=== PATIENT | female | born 1990 | race Caucasian/White ===

== ENCOUNTER 2017-05-08 17:59 | Emergency (ER) | payer SELFPAY ==
[~2017-05-08] VITALS: Ht 160 cm; Wt 57.7 kg
[~2017-05-08 17:59] MED LIST: DIAZ5 PO; DICY1TAB26 PO; MACR100C PO; PROC1TAB8 PO
[2017-05-08 18:11] VITALS: BP 109/84; PULSE 99; RESP 20; TEMP 98.6; O2SAT 99
[2017-05-08] MEDS ORDERED: SODIUM CHLOR 0.9% 1000 ML INJ 1,000 ML IV ONE (19:19)
--- NOTE | 2017-05-08 19:25 | PD ---
HPI Chief Complaint: Headache Time Seen by Provider: 19:10 Travel History International Travel<30 days: No Contact w/Intl Traveler<30days: No Traveled to known affect area: No History of Present Illness HPI The patient is a 26-year-old female that complains of a headache behind her left eye going on over a year. It is been getting worse in the last few months and in particular the last few days she has had some nausea and vomiting. She denies any focal neurologic change. She denies any fever. She does have a history of migraine headaches in her family. He states there is no possibility of . She denies any nasal discharge. She does have photophobia but no phonophobia. She states her headache pain as an 8/10 and an achy pain. She has a past history of IV drug abuse and does have hepatitis C but no longer engages in IV drug abuse. PFSH Past Medical History Arthritis: No Asthma: No Autoimmune Disease: No Anxiety: Yes Heart Rhythm Problems: No Cancer: No Cardiovascular Problems: No High Cholesterol: No Chest Pain: No Congestive Heart Failure: No Cerebrovascular Accident: No Diabetes: No Diminished Hearing: Yes (OUTER EAR RECONSTRUCTION) Endocrine: No Gastrointestinal Disorders: No GERD: No Genitourinary: No Hepatitis: Yes (HEP C+) Hiatal Hernia: Yes Hypertension: No Immune Disorder: No Inguinal Hernia: Yes Kidney Stones: No Musculoskeletal: Yes Neurologic: No Psychiatric: Yes Reproductive: No Respiratory: No Immunizations Current: Yes Migraines: Yes Myocardial Infarction: No Renal Failure: No Seizures: No Sleep Apnea: No Thyroid Disease: No Ulcer: No Influenza Vaccination: No ?: Unknown LMP: 3 WEEKS AGO : 3 Para: 1 Miscarriage: 0 : 2 Past Surgical History Abdominal Surgery: Yes (UMBILICAL HERNIA REPAIR) Appendectomy: No Cardiac Surgery: No Cholecystectomy: No Ear Surgery: Yes (RECONSTRUCTIVE SURGERY RIGHT OUTER EAR. ) Endocrine Surgery: No Eye Surgery: No Genitourinary Surgery: No Gynecologic Surgery: Yes Oral Surgery: No Thoracic Surgery: No Social History Alcohol Use: No Tobacco Use: Yes (1/2 PPD) Substance Use: No Allergies-Medications (Allergen,Severity, Reaction): Coded Allergies: Tramadol (Verified Allergy, Severe, HIVES, TONGUE AND TRHOAT SWELL, ) *MDRO Multi-Drug Resistant Organism (Verified Allergy, Unknown, 05/08/17) Mrsa urine Reported Meds & Prescriptions Reported Meds & Active Scripts Active No Active Prescriptions or Reported Medications Review of Systems Except as stated in HPI: all other systems reviewed are Neg Physical Exam Narrative GENERAL: The patient is alert, oriented 3 and moderate apparent distress with her headache. Her vital sides are normal except for heart rate of 99. SKIN: Focused skin assessment warm/dry. No skin rash is seen. HEAD: Atraumatic. Normocephalic. EYES: Pupils equal and round. No scleral icterus. No injection or drainage. ENT: No nasal bleeding or discharge. Mucous membranes pink and moist. NECK: Trachea midline. No JVD. There is no meningismus and the patient flexes neck fully so that the chin touches the chest. CARDIOVASCULAR: Regular rate and rhythm. No murmur appreciated. RESPIRATORY: No accessory muscle use. Clear to auscultation. Breath sounds equal bilaterally. GASTROINTESTINAL: Abdomen soft, non-tender, nondistended. Hepatic and splenic margins not palpable. MUSCULOSKELETAL: No obvious deformities. No clubbing. No cyanosis. No edema. NEUROLOGICAL: Awake and alert. No obvious cranial nerve deficits. Motor grossly within normal limits. Normal speech. PSYCHIATRIC: Appropriate mood and affect; insight and judgment normal. Data Data Last Documented VS Vital Signs Date Time Temp Pulse Resp B/P Pulse Ox O2 Delivery O2 Flow Rate FiO2 05/08/17 18:11 98.6 99 20 109/84 99 Orders Sumatriptan Inj (Imitrex Inj) (05/08/17 19:30) Complete Blood Count With Diff (05/08/17 19:19) Comprehensive Metabolic Panel (05/08/17 19:19) Ct Brain W/O Iv Contrast(Rout) (05/08/17 19:19) Ecg Monitoring (05/08/17 19:19) Iv Access Insert/Monitor (05/08/17 19:19) Oximetry (05/08/17 19:19) Sodium Chloride 0.9% Flush (Ns Flush) (05/08/17 19:30) Ketorolac Inj (Toradol Inj) (05/08/17 19:30) Prochlorperazine Inj (Compazine Inj) (05/08/17 19:30) Diphenhydramine Inj (Benadryl Inj) (05/08/17 19:30) Sodium Chlor 0.9% 1000 Ml Inj (Ns 1000 M (05/08/17 19:19) Urinalysis - C+S If Indicated (05/08/17 19:19) Ed Urine Pregnancytest Poc (05/08/17 19:19) Labs Laboratory Tests Test 05/08/17 19:35 Urine Color YELLOW Urine Turbidity CLEAR Urine pH 6.0 Urine Specific [place] 1.014 Urine Protein NEG mg/dL Urine Glucose (UA) NEG mg/dL Urine Ketones TRACE mg/dL Urine Occult Blood NEG Urine Nitrite POS Urine Bilirubin NEG Urine Leukocyte Esterase NEG Urine RBC INNUM /hpf Urine WBC 3-5 /hpf Urine Squamous Epithelial 0-5 /hpf Cells Urine Bacteria FEW /hpf Microscopic Urinalysis Comment CULT NOT INDICATED MDM Medical Decision Making Medical Screen Exam Complete: Yes Emergency Medical Condition: Yes Medical Record Reviewed: Yes Interpretation(s) The urine shows clear with trace ketones, positive nitrite, innumerable red cells with negative occult urine blood and 3-5 white cells and culture is not indicated. The CT brain is unremarkable. The [id number] test is negative. Differential Diagnosis Migraine headache, tension headache, tension/migraine combination headache, cluster headache, subarachnoid hemorrhagehighly unlikely, normal pressure hydrocephalus Narrative Course The patient refused blood work and did not want any pain medication or any other medication. The patient has had this headache over a year and needs to follow-up with a primary care physician and, hopefully, a neurologist. Plan: She'll be given Compazine for nausea. Diagnosis Primary Impression: Migraine headache without aura Additional Instructions: As we discussed, follow-up with a primary care physician. The nausea medicine, Compazine, can make you little sleepy but may also help your headache as well. Scripts Prochlorperazine Maleate 10 Mg Tab10 Mg PO Q6H PRN (NAUSEA OR VOMITING) #30 TAB Ref 0 Prov:James Gold MD 05/08/17 Disposition: 01 DISCHARGE HOME Condition: Stable James Gold MD May 08, 2017 19:25
[2017-05-08] MEDS ORDERED: KETOROLAC TROMETHAMINE 30 MG/ML (IVP) VIAL IVP ONE (19:30)
[2017-05-08] MEDS ORDERED: PROCHLORPERAZINE INJ 10 MG/2 ML VIAL IVP ONE (19:30)
[2017-05-08] MEDS ORDERED: SODIUM CHLORIDE 0.9% FLUSH 10 ML FLUSH IVF PRN (19:30)
[2017-05-08] MEDS ORDERED: SUMAtriptan INJ 6 MG/0.5 ML VIAL SQ ONE (19:30)
[2017-05-08] MEDS ORDERED: diphenhydrAMINE HCL 50 MG/ML VIAL IVP ONE (19:30)
[2017-05-08 19:50] LABS: BLOOD, URINE NEG (NEG); GLUCOSE,URINE NEG (NEG); KETONE, URINE TRACE mg/dL (NEG)
[2017-05-08 19:55] LABS: NITRITE,URINE POS (NEG)
[2017-05-08 19:56] LABS: URINE COLOR YELLOW (YELLW/STRAW)
[2017-05-08 19:59] LABS: BACTERIA, URINE FEW /hpf; COMMENT (UR) CULT NOT INDICATED; CULTURE IF INDICATED CULT NOT INDICATED; RBC, URINE INNUM /hpf (0-3); SQUAMOUS EPITHELIAL CELL URINE 0-5 /hpf (0-5)
--- NOTE | 2017-05-08 20:00 | RADRPT ---
EXAM DATE/TIME: 05/08/2017 19:39 [facility] COMPARISON: CT BRAIN W/O CONTRAST, October 13, 2015, 2:09. INDICATIONS : Headache behind left eye along with nausea and vomiting. RADIATION DOSE: 64.02 CTDIvol (mGy) MEDICAL HISTORY : Hepatitis C. SURGICAL HISTORY : Umbilical hernia repair. Right ear reconstruction ENCOUNTER: Initial ACUITY: 1 yr PAIN SCALE: 8/10 LOCATION: Left cranial TECHNIQUE: Multiple contiguous axial images were obtained of the head. Using automated exposure control and adj ustment of the mA and/or kV according to patient size, radiation dose was kept as low as reasonably a chievable to obtain optimal diagnostic quality images. DICOM format image data is available electro nically for review and comparison. FINDINGS: CEREBRUM: The ventricles are normal for age. No evidence of midline shift, mass lesion, hemorrhage or acute in farction. No extra-axial fluid collections are seen. POSTERIOR FOSSA: The cerebellum and brainstem are intact. The 4th ventricle is midline. The cerebellopontine angle i s unremarkable. EXTRACRANIAL: The visualized portion of the orbits is intact. SKULL: The calvaria is intact. No evidence of skull fracture. CONCLUSION: Unremarkable noncontrast CT. George Tyson MD on May 08, 2017 at 19:56 Board Certified Radiologist. This report was verified electronically.
[2017-05-08] MEDS ORDERED: PROC10TA PO (20:33)
[2017-05-08 20:38] VITALS: BP 111/72
== END 2017-05-08 20:41 | disposition home or self-care (01) ==
LOC: PHED 17:59
DX: G43.009 Migraine without aura, not intractable, without status migrainosus (principal); R11.0 Nausea; H53.149 Visual discomfort, unspecified; B19.20 Unspecified viral hepatitis C without hepatic coma; F17.210 Nicotine dependence, cigarettes, uncomplicated
CPT/HCPCS: 70450; 81001; 84703; 99284

== ENCOUNTER 2017-05-16 18:59 | Emergency (ER) | payer SELFPAY ==
[~2017-05-16] VITALS: Ht 157.5 cm; Wt 57.2 kg
[~2017-05-16 18:59] MED LIST changes: -DIAZ5 PO; -DICY1TAB26 PO; -MACR100C PO; +PROC10TA PO; -PROC1TAB8 PO
[2017-05-16 19:05] VITALS: BP 121/61; PULSE 61; RESP 18; TEMP 98.2; O2SAT 100
[2017-05-16] MEDS ORDERED: SODIUM CHLOR 0.9% 1000 ML INJ 1,000 ML IV ONE (19:44)
[2017-05-16] MEDS ORDERED: ONDANSETRON HCL 4 MG/2 ML VIAL IV ONE (19:45)
--- NOTE | 2017-05-16 19:58 | PD ---
HPI Chief Complaint: Abdominal Pain Time Seen by Provider: 19:44 Travel History International Travel<30 days: No Contact w/Intl Traveler<30days: No Traveled to known affect area: No History of Present Illness HPI The patient is a 26-year-old female that complains of primarily left pelvic pain along with nausea and vomiting for 2 days. She does have dysuria, frequency and urgency. She denies any vaginal bleeding. She states she has has chills but does not have a thermometer and never recorded a fever at home. She does have a vaginal discharge. She is G1, P1, A3all elective abortions. She was seen last week for headache and nausea, she states she always has a headache on and off. Her last menstrual period was normal 2 weeks ago. She does not have a primary care physician or insurance. PFSH Past Medical History Arthritis: No Asthma: No Autoimmune Disease: No Anxiety: Yes Heart Rhythm Problems: No Cancer: No Cardiovascular Problems: No High Cholesterol: No Chest Pain: No Congestive Heart Failure: No Cerebrovascular Accident: No Diabetes: No Diminished Hearing: Yes (OUTER EAR RECONSTRUCTION) Endocrine: No Gastrointestinal Disorders: No GERD: No Genitourinary: No Hepatitis: Yes (HEP C+) Hiatal Hernia: Yes Hypertension: No Immune Disorder: No Inguinal Hernia: Yes Kidney Stones: No Musculoskeletal: Yes Neurologic: No Psychiatric: Yes Reproductive: No Respiratory: No Immunizations Current: Yes Migraines: Yes Myocardial Infarction: No Renal Failure: No Seizures: No Sleep Apnea: No Thyroid Disease: No Ulcer: No Influenza Vaccination: No ?: Not LMP: 2 WEEKS : 3 Para: 1 Miscarriage: 0 : 2 Past Surgical History Abdominal Surgery: Yes (UMBILICAL HERNIA REPAIR) Appendectomy: No Cardiac Surgery: No Cholecystectomy: No Ear Surgery: Yes (RECONSTRUCTIVE SURGERY RIGHT OUTER EAR. ) Endocrine Surgery: No Eye Surgery: No Genitourinary Surgery: No Gynecologic Surgery: Yes Oral Surgery: No Thoracic Surgery: No Social History Alcohol Use: No Tobacco Use: Yes (1/2 PPD) Substance Use: No Allergies-Medications (Allergen,Severity, Reaction): Coded Allergies: Tramadol (Verified Allergy, Severe, HIVES, TONGUE AND TRHOAT SWELL, ) *MDRO Multi-Drug Resistant Organism (Verified Allergy, Unknown, 05/16/17) Mrsa urine Reported Meds & Prescriptions Reported Meds & Active Scripts Active Keflex (Cephalexin) 500 Mg Capsule 500 Mg PO TID 10 Days Phenergan (Promethazine HCl) 25 Mg Tablet 25 Mg PO Q6H PRN Review of Systems Except as stated in HPI: all other systems reviewed are Neg Physical Exam Narrative GENERAL: The patient is alert, oriented 3 in moderate apparent distress with her left pelvic pain. Her vital signs are normal. SKIN: Focused skin assessment warm/dry. HEAD: Atraumatic. Normocephalic. EYES: Pupils equal and round. No scleral icterus. No injection or drainage. ENT: No nasal bleeding or discharge. Mucous membranes pink and moist. NECK: Trachea midline. No JVD. CARDIOVASCULAR: Regular rate and rhythm. No murmur appreciated. RESPIRATORY: No accessory muscle use. Clear to auscultation. Breath sounds equal bilaterally. GASTROINTESTINAL: Abdomen soft, with tenderness to direct palpation in the left pelvis, nondistended. Hepatic and splenic margins not palpable. No guarding or rebound is present. MUSCULOSKELETAL: No obvious deformities. No clubbing. No cyanosis. No edema. NEUROLOGICAL: Awake and alert. No obvious cranial nerve deficits. Motor grossly within normal limits. Normal speech. PSYCHIATRIC: The patient is anxious; insight and judgment normal. GENITOURINARY: Normal external genitalia without lesions or erythema. Vaginal vault without blood but there is a watery, white drainage. Cervical os was closed without drainage. There is exquisite cervical motion tenderness. Uterus tender and nonenlarged. The left adnexa is exquisitely tender but no masses are felt. Data Data Last Documented VS Vital Signs Date Time Temp Pulse Resp B/P Pulse Ox O2 Delivery O2 Flow Rate FiO2 05/16/17 19:05 98.2 61 18 121/61 100 Orders Beta Hcg (Quant/Titer) (05/16/17 19:44) Complete Blood Count With Diff (05/16/17 19:44) Comprehensive Metabolic Panel (05/16/17 19:44) Urinalysis - C+S If Indicated (05/16/17 19:44) Sodium Chlor 0.9% 1000 Ml Inj (Ns 1000 M (05/16/17 19:44) Ondansetron Inj (Zofran Inj) (05/16/17 19:45) Gc And Chlamydia Pcr (05/16/17 20:00) Wet Prep Profile (05/16/17 20:00) Ketorolac Inj (Toradol Inj) (05/16/17 20:00) Urine Culture (05/16/17 19:45) Ceftriaxone Inj (Rocephin Inj) (05/16/17 21:00) Azithromycin Powd Pack (Zithromax Powd P (05/16/17 21:00) Labs Laboratory Tests Test 05/16/17 05/16/17 19:45 19:50 Urine Collection Type VOIDED Urine Color YELLOW Urine Turbidity CLOUDY Urine pH 7.5 Urine Specific [place] 1.020 Urine Protein 100 mg/dL Urine Glucose (UA) NEG mg/dL Urine Ketones NEG mg/dL Urine Occult Blood TRACE Urine Nitrite POS Urine Bilirubin NEG Urine Leukocyte Esterase TRACE Urine WBC 25-49 /hpf Urine WBC Clumps FEW Urine Squamous Epithelial 0-2 /hpf Cells Urine Bacteria MANY /hpf Microscopic Urinalysis Comment CULTURE INDICATED White Blood Count 7.0 TH/MM3 Red Blood Count 4.48 MIL/MM3 Hemoglobin 13.1 GM/DL Hematocrit 39.0 % Mean Corpuscular Volume 87.1 FL Mean Corpuscular Hemoglobin 29.1 PG Mean Corpuscular Hemoglobin 33.4 % Concent Red Cell Distribution Width 12.4 % Platelet Count 216 TH/MM3 Mean Platelet Volume 9.4 FL Neutrophils (%) (Auto) 63.5 % Lymphocytes (%) (Auto) 24.4 % Monocytes (%) (Auto) 10.8 % Eosinophils (%) (Auto) 0.6 % Basophils (%) (Auto) 0.7 % Neutrophils # (Auto) 4.5 TH/MM3 Lymphocytes # (Auto) 1.7 TH/MM3 Monocytes # (Auto) 0.8 TH/MM3 Eosinophils # (Auto) 0.0 TH/MM3 Basophils # (Auto) 0.0 TH/MM3 CBC Comment DIFF FINAL Differential Comment Clue Cells (Wet Prep) NONE SEEN Vaginal Trichomonas (Wet Prep) NONE SEEN Vaginal Yeast (Wet Prep) NONE SEEN Sodium Level 139 MEQ/L Potassium Level 3.6 MEQ/L Chloride Level 105 MEQ/L Carbon Dioxide Level 23.6 MEQ/L Anion Gap 10 MEQ/L Blood Urea Nitrogen 16 MG/DL Creatinine 0.79 MG/DL Estimat Glomerular Filtration 87 ML/MIN Rate Random Glucose 88 MG/DL Calcium Level 8.9 MG/DL Total Bilirubin 0.8 MG/DL Aspartate Amino Transf 17 U/L (AST/SGOT) Alanine Aminotransferase 25 U/L (ALT/SGPT) Alkaline Phosphatase 36 U/L Total Protein 7.9 GM/DL Albumin 4.2 GM/DL Human Chorionic Gonadotropin, LESS THAN 1 Quant MIU/ML MDM Medical Decision Making Medical Screen Exam Complete: Yes Emergency Medical Condition: Yes Medical Record Reviewed: Yes Interpretation(s) The CBC is normal. The complete metabolic profile shows a GFR of 87 but is otherwise normal. The beta-hCG is less than 1. The wet prep is negative for Trichomonas, clue cells or yeast. The urine shows cloudy turbidity, trace occult blood, 25-49 white cells with a few white cell clumping's and many bacteria and culture is indicated. Differential Diagnosis PID, pyelonephritis, cystitis, electrolyte disorder, appendicitisunlikely, ruptured ovarian cyst Narrative Course The patient has PID and pyelonephritis. She has a positive urine, flank tenderness and exquisite cervical tenderness. Plan: The patient is given Rocephin and oral Zithromax, Zofran and Keflex. She will need to follow-up with a primary care physician next week. She needs to increase liquid intake. Diagnosis Primary Impression: Pyelonephritis Additional Impression: PID (acute pelvic inflammatory disease) Additional Instructions: The Zofran is one tablet every 6 hours as needed for nausea. The Keflex is one tablet 3 times a day for 10 days. Follow-up next week with a primary care physician. Drink increased liquids to establish a good urine flow through your kidneys. Med/Other Pt SpecificInfo: Prescription(s) given Scripts Cephalexin (Keflex)500 Mg [id number] Mg PO TID 10 Days Ref 0 Prov:James Gold MD 05/16/17 Promethazine (Phenergan)25 Mg [id number] Mg PO Q6H PRN (NAUSEA OR VOMITING) #30 TAB Ref 0 Prov:James Gold MD 05/16/17 Disposition: 01 DISCHARGE HOME Condition: Stable James Gold MD May 16, 2017 19:58
[2017-05-16] MEDS ORDERED: KETOROLAC TROMETHAMINE 60 MG/2 ML (IM) VIAL IVP ONE (20:00)
[2017-05-16 20:01] LABS: BLOOD, URINE TRACE (NEG); GLUCOSE,URINE NEG (NEG); KETONE, URINE NEG (NEG); PH, URINE 7.5 (5.0-8.5)
[2017-05-16 20:02] LABS: NITRITE,URINE POS (NEG)
[2017-05-16 20:11] LABS: METHOD OF COLLECTION VOIDED; URINE COLOR YELLOW (YELLW/STRAW)
[2017-05-16 20:11] LABS: AUTOMATED NEUTROPHIL # 4.5 TH/MM3 (1.8-7.7); BASOPHIL % 0.7 % (0.0-2.0); EOSINOPHIL % 0.6 % (0.0-4.0); HEMO FLAGS DIFF FINAL; LYMPH % 24.4 % (9.0-44.0); LYMPHOCYTE # 1.7 TH/MM3 (1.0-4.8); MEAN CELL VOLUME 87.1 FL (80.0-100.0); MEAN CORPUSCULAR HEMOGLOBIN 29.1 PG (27.0-34.0); MEAN CORPUSCULAR HGB CONC 33.4 % (32.0-36.0); MONO % 10.8 % (0.0-8.0); NEUT % 63.5 % (16.0-70.0); PLATELET COUNT 216 TH/MM3 (150-450); RED BLOOD COUNT 4.48 MIL/MM3 (4.00-5.30); RED CELL DISTRIBUTION WIDTH 12.4 % (11.6-17.2)
[2017-05-16 20:13] LABS: BACTERIA, URINE MANY /hpf; COMMENT (UR) CULTURE INDICATED; CULTURE IF INDICATED CULTURE INDICATED; SQUAMOUS EPITHELIAL CELL URINE 0-2 /hpf (0-5)
[2017-05-16 20:20] LABS: CHLORIDE 105 MEQ/L (98-107); POTASSIUM 3.6 MEQ/L (3.5-5.1); SODIUM (NA) 139 MEQ/L (136-145)
[2017-05-16 20:24] LABS: ANION GAP 10 MEQ/L (5-15); BICARBONATE 23.6 MEQ/L (21.0-32.0); BLOOD UREA NITROGEN 16 MG/DL (7-18)
[2017-05-16 20:27] LABS: ALT (GPT) 25 U/L (10-53); AST (GOT) 17 U/L (15-37); GLOMERULAR FILTRATION RATE 87 ML/MIN (>89)
[2017-05-16 20:29] LABS: TOTAL BILIRUBIN ADULT 0.8 MG/DL (0.2-1.0)
[2017-05-16 20:30] LABS: ALKALINE PHOSPHATASE 36 U/L (45-117)
[2017-05-16 20:32] LABS: BETA HCG QUANT LESS THAN 1 MIU/ML (0-5)
[2017-05-16 20:45] VITALS: BP 125/66; PULSE 66; RESP 18; O2SAT 99
[2017-05-16] MEDS ORDERED: PROM25TA10 PO (20:57)
[2017-05-16] MEDS ORDERED: CEPH-460 PO (20:57)
[2017-05-16] MEDS ORDERED: cefTRIAXone INJ 1,000 MG in SODIUM CHLORIDE 0.9% INJ 100 ML IV ONE (21:00)
[2017-05-16] MEDS ORDERED: AZITHROMYCIN PWD FOR SUSP 1 GM PACKET PO ONE (21:00)
[2017-05-16] MEDS ORDERED: IBUP-232 PO (21:02)
[2017-05-16 21:06] VITALS: RESP 16
[2017-05-16 21:25] VITALS: BP 107/55; PULSE 71; RESP 16; O2SAT 98
[2017-05-16 22:02] VITALS: BP 110/68
[2017-05-17 03:00] LABS: CHLAMYDIA PCR NOT DETECTED (NOT DETECT); NEISSERIA PCR NOT DETECTED (NOT DETECT)
== END 2017-05-16 22:01 | disposition home or self-care (01) ==
LOC: PHED 18:59
DX: N12 Tubulo-interstitial nephritis, not specified as acute or chronic (principal); N73.9 Female pelvic inflammatory disease, unspecified; B19.20 Unspecified viral hepatitis C without hepatic coma; A49.8 Other bacterial infections of unspecified site
CPT/HCPCS: 80053; 81001; 84702; 85025; 87077; 87086; 87186; 87210; 87491; 87591; 96361; 96365; 96375; 99284; J0696; J1885; J2405; J7030

== ENCOUNTER 2018-04-26 22:03 | Emergency (ER) | payer SELFPAY ==
[~2018-04-26] VITALS: Ht 157.5 cm; Wt 70.0 kg
[~2018-04-26 22:03] MED LIST changes: +CEPH-460 PO; +IBUP-232 PO; -PROC10TA PO; +PROM25TA10 PO
[2018-04-26 22:31] VITALS: BP 116/72; PULSE 84; RESP 18; TEMP 99.4; O2SAT 100
[2018-04-26 23:09] LABS: BILIRUBIN, URINE NEG (NEG); BLOOD, URINE LARGE (NEG); GLUCOSE,URINE NEG (NEG); KETONE, URINE NEG (NEG); MUCUS URINE FEW /lpf (OCC); NITRITE,URINE NEG (NEG); SQUAMOUS EPITHELIAL CELL URINE 7 /hpf (0-5); URINE COLOR YELLOW (YELLW/STRAW); URINE LEUKOCYTE ESTERASE MOD (NEG)
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
[2018-04-26 23:57] VITALS: O2SAT 98
[2018-04-27 00:04] LABS: AUTOMATED NEUTROPHIL # 8.4 TH/MM3 (1.8-7.7); BASOPHIL # 0.1 TH/MM3 (0-0.2); BASOPHIL % 0.5 % (0.0-2.0); EOSINOPHIL % 0.3 % (0.0-4.0); HEMATOCRIT 38.5 % (35.0-46.0); LYMPH % 18.2 % (9.0-44.0); LYMPHOCYTE # 2.1 TH/MM3 (1.0-4.8); MEAN CELL VOLUME 88.9 FL (80.0-100.0); MEAN CORPUSCULAR HEMOGLOBIN 30.1 PG (27.0-34.0); MEAN CORPUSCULAR HGB CONC 33.9 % (32.0-36.0); MEAN PLATELET VOLUME 9.4 FL (7.0-11.0); MONO % 7.7 % (0.0-8.0); MONOCYTE # 0.9 TH/MM3 (0-0.9); NEUT % 73.3 % (16.0-70.0); PLATELET COUNT 232 TH/MM3 (150-450); RED BLOOD COUNT 4.33 MIL/MM3 (4.00-5.30); RED CELL DISTRIBUTION WIDTH 12.8 % (11.6-17.2); WHITE BLOOD COUNT 11.5 TH/MM3 (4.0-11.0)
[2018-04-27 00:21] LABS: INTERNATIONAL NORMALIZED RATIO 1.2 RATIO; PROTHROMBIN TIME - PATIENT 11.9 SEC (9.8-11.6)
[2018-04-27 00:26] LABS: ALT (GPT) 23 U/L (10-53); AST (GOT) 23 U/L (15-37); BICARBONATE 22.7 MEQ/L (21.0-32.0); BLOOD UREA NITROGEN 18 MG/DL (7-18); CALCIUM 8.5 MG/DL (8.5-10.1); CHLORIDE 107 MEQ/L (98-107); CREATININE 0.67 MG/DL (0.50-1.00); GLOMERULAR FILTRATION RATE 104 ML/MIN (>89); GLUCOSE,RANDOM 86 MG/DL (74-106); SODIUM (NA) 138 MEQ/L (136-145)
[2018-04-27 00:29] LABS: ALKALINE PHOSPHATASE 44 U/L (45-117); TOTAL BILIRUBIN ADULT 0.4 MG/DL (0.2-1.0); TOTAL PROTEIN 7.7 GM/DL (6.4-8.2)
[2018-04-27] MEDS ORDERED: IOHEXOL 350 MG/ML 10 ML VIAL (for RAD DIAG) IVCONTRAST ONE (01:37)
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
== END 2018-04-27 02:21 | disposition home or self-care (01) ==
LOC: NEPC 22:03
DX: N93.8 Other specified abnormal uterine and vaginal bleeding (principal); R10.32 Left lower quadrant pain; R82.99 Other abnormal findings in urine; W50.1XXA Accidental kick by another person, initial encounter; Y93.71 Activity, boxing; B19.20 Unspecified viral hepatitis C without hepatic coma; F41.9 Anxiety disorder, unspecified; F17.210 Nicotine dependence, cigarettes, uncomplicated; Z88.8 Allergy status to other drugs, medicaments and biological substances
CPT/HCPCS: 74177; 80053; 81001; 83690; 84703; 85025; 85610; 85730; 87086; 99284; Q9967